=== PATIENT | male | born 1965 | race Caucasian/White ===

== ENCOUNTER 2017-08-01 08:30 | Emergency (ER) | payer BC, SELFPAY ==
[2017-08-01 08:36] VITALS: BMI 31.6
[2017-08-01 08:37] VITALS: BP 156/87; PULSE 78; RESP 16; TEMP 36.8; O2SAT 98; BMI 33.0
--- NOTE | 2017-08-01 08:44 | CT_ITS ---
CT abdomen pelvis wo con CLINICAL INDICATION: Left flank pain with hematuria with history of kidney stones ITS.REASON: FLANK PAIN,BACK PAIN ORDERING PHYSICIAN: Darwin Turner MD PATIENT AGE: 51 years COMPARISON: 03/29/2016 TECHNIQUE: Axial images obtained with sagittal and coronal reformats. PROCEDURE: Oral Contrast: None IV Contrast: None . FINDINGS: No acute finding the lung bases The liver, spleen, adrenal glands, pancreas and gallbladder have an unremarkable unenhanced CT appearance. There is a 4 mm stone at the left ureterovesical junction causing mild left-sided hydronephrosis and hydroureter with minimal stranding of the left perinephric and. Ureteral fat. There is mild fusiform dilatation of the infrarenal abdominal aorta at 2.8 cm. Unremarkable appendix. No evidence of intestinal obstruction, free air, or diverticulitis. No acute bony anomalies. IMPRESSION: 4 mm obstructing left ureterovesical junction stone with mild left hydroureteronephrosis
--- NOTE | 2017-08-01 08:44 | [facility].EDGENADL ---
ED Disposition Clinical Impression: Kidney stone on left side, Obstruction of left ureteropelvic junction (UPJ) due to stone Hematuria Qualifiers: Hematuria type: unspecified type Qualified Code(s): R31.9 - Hematuria, unspecified Disposition: Home, Self-Care Condition on Discharge: Good Instructions: DI for Kidney Stones, DI for Calluses and Corns Additional Instructions: Please drink plenty of fluids, take the medications prescribed as directed, follow-up with Dr. Marcus within 2 days, if pain not subsiding. Please follow up with Dr Boyer regarding your foot callus. Prescriptions: Etodolac [Etodolac 400mg Tab] 400 mg PO BID PRN #40 tab PRN Reason: pain Tadalafil [Cialis] 5 mg PO DIRECTED #20 tab Tamsulosin HCl [Flomax 0.4mg capsule] 0 mg PO DAILY #30 cap.er.24h Referrals: Irish Boyer DPM [Physician] - Gordon Marcus MD [Physician] - Forms: Work/School Release Time of Disposition: 10:12 - Critical Care Critical Care Time: No Attestation: On , the high probability of a clinically significant, sudden or life threatening deterioration of the following system(s) required my full and direct attention, intervention and personal management. The time I documented below is in addition to time spent performing reported procedures but includes the following listed in this critical care notation. Medical Decision Making - Medical Records Medical records reviewed: Yes: I reviewed the patient's medical records. Vital Signs: 08/01/17 08:37 08/01/17 10:16 Temperature 98.3 F 98.4 F Temperature Source Temporal Artery Scan Pulse Rate 89 Pulse Rate [Right Brachial] 78 Respiratory Rate 16 18 Blood Pressure 133/81 Blood Pressure [Right Arm] 156/87 Blood Pressure Mean [Right Arm] 110 Blood Pressure Source [Right Arm] Automatic Cuff 02 Sat by Pulse Oximetry 98 Oxygen Delivery Method Room Air - Lab Data Lab results reviewed: Yes: I reviewed the patient's lab results. Lab Results 08/01/17 08:50: WBC 10.9 H, RBC 4.72, Hgb 14.8, Hct 43.8, MCV 92.9, MCH 31.4 H, MCHC 33.8, RDW 12.4, Plt Count 213, MPV 7.3 L, Neut % (Auto) 73.9, Lymph % (Auto) 17.8, [place] % (Auto) 6.8, Eos % (Auto) 0.9, Baso % (Auto) 0.5, Neut # (Auto) 8.1 H, Lymph # (Auto) 1.9, [place] # (Auto) 0.8, Eos # (Auto) 0.1, Baso # (Auto) 0.1 08/01/17 08:50: Sodium 137, Potassium 3.7, Chloride 104, Carbon Dioxide 24, Anion Gap 12.7, BUN 12, Creatinine 1.20, Estimated Creat Clear 115, Estimated GFR 64, Est GFR ( Amer) 77, Glucose 134 H, Calcium 8.7, Total Bilirubin 0.5, AST 26, ALT 48, Alkaline Phosphatase 74, Total Protein 8.0, Albumin 4.3, Globulin 3.7 H, Albumin/Globulin Ratio 1.2 08/01/17 09:00: Urine Color Yellow, Urine Appearance Clear, Urine pH 5.5, Ur Specific [place] 1.025, Urine Protein Trace, Urine Glucose (UA) Negative, Urine Ketones Negative, Urine Blood Trace, Urine Nitrate Negative, Urine Bilirubin Negative, Urine Urobilinogen 0.2, Ur Leukocyte Esterase Negative, Urine RBC 5-10, Urine WBC Occasional, Ur Squamous Epith Cells 3-5, Urine Bacteria 2+, Urine Mucus 2+ Result diagrams: 08/01/17 08:50 08/01/17 08:50 Orders (Tests/Meds): ED MEDICATIONS Discontinued Medications Generic Name Dose Route Start Last Admin Trade Name Roqueq PRN Reason Stop Dose Admin Ketorolac Tromethamine 30 mg 08/01/17 08:44 08/01/17 08:48 Toradol 30mg/Ml Vial IV 08/01/17 08:45 30 mg ONCE ONE Administration Ondansetron HCl 4 mg 08/01/17 08:46 08/01/17 08:48 Zofran 4mg/2ml Vial IV 08/01/17 08:47 4 mg ONCE ONE Administration ORDERS Category Date Time Status Urine Culture Stat Micro 08/01/17 09:00 Received - CT Data CT Scan: Abdomen, Pelvis (Both contrast) Time Received: 08:[address] Reviewed: Yes: I have reviewed the patient's CT results Findings Narrative: See the radiologist's report, consistent with 4 mm calculus at left UVJ - [place] Inquiry Pt receiving controlled substance: No - Reevaluation(s) T
--- NOTE | 2017-08-01 08:51 | ED_ITS ---
ED Disposition Clinical Impression: Kidney stone on left side, Obstruction of left ureteropelvic junction (UPJ) due to stone Hematuria Qualifiers: Hematuria type: unspecified type Qualified Code(s): R31.9 - Hematuria, unspecified Disposition: Home, Self-Care Condition on Discharge: Good Instructions: DI for Kidney Stones, DI for Calluses and Corns Additional Instructions: Please drink plenty of fluids, take the medications prescribed as directed, follow-up with Dr. Marcus within 2 days, if pain not subsiding. Please follow up with Dr Boyer regarding your foot callus. Prescriptions: Etodolac [Etodolac 400mg Tab] 400 mg PO BID PRN #40 tab PRN Reason: pain Tadalafil [Cialis] 5 mg PO DIRECTED #20 tab Tamsulosin HCl [Flomax 0.4mg capsule] 0 mg PO DAILY #30 cap.er.24h Referrals: Irish Boyer DPM [Physician] - Gordon Marcus MD [Physician] - Forms: Work/School Release Time of Disposition: 10:12 - Critical Care Critical Care Time: No Attestation: On , the high probability of a clinically significant, sudden or life threatening deterioration of the following system(s) required my full and direct attention, intervention and personal management. The time I documented below is in addition to time spent performing reported procedures but includes the following listed in this critical care notation. Medical Decision Making - Medical Records Medical records reviewed: Yes: I reviewed the patient's medical records. Vital Signs: 08/01/17 08:37 08/01/17 10:16 Temperature 98.3 F 98.4 F Temperature Source Temporal Artery Scan Pulse Rate 89 Pulse Rate [Right Brachial] 78 Respiratory Rate 16 18 Blood Pressure 133/81 Blood Pressure [Right Arm] 156/87 Blood Pressure Mean [Right Arm] 110 Blood Pressure Source [Right Arm] Automatic Cuff 02 Sat by Pulse Oximetry 98 Oxygen Delivery Method Room Air - Lab Data Lab results reviewed: Yes: I reviewed the patient's lab results. Lab Results 08/01/17 08:50: WBC 10.9 H, RBC 4.72, Hgb 14.8, Hct 43.8, MCV 92.9, MCH 31.4 H, MCHC 33.8, RDW 12.4, Plt Count 213, MPV 7.3 L, Neut % (Auto) 73.9, Lymph % (Auto ) 17.8, [place] % (Auto) 6.8, Eos % (Auto) 0.9, Baso % (Auto) 0.5, Neut # (Auto) 8.1 H, Lymph # (Auto) 1.9, [place] # (Auto) 0.8, Eos # (Auto) 0.1, Baso # (Auto) 0.1 08/01/17 08:50: Sodium 137, Potassium 3.7, Chloride 104, Carbon Dioxide 24, Anion Gap 12.7, BUN 12, Creatinine 1.20, Estimated Creat Clear 115, Estimated GFR 64, Est GFR ( Amer) 77, Glucose 134 H, Calcium 8.7, Total Bilirubin 0.5, AST 26, ALT 48, Alkaline Phosphatase 74, Total Protein 8.0, Albumin 4.3, Globulin 3.7 H, Albumin/Globulin Ratio 1.2 08/01/17 09:00: Urine Color Yellow, Urine Appearance Clear, Urine pH 5.5, Ur Specific [place] 1.025, Urine Protein Trace, Urine Glucose (UA) Negative, Urine Ketones Negative, Urine Blood Trace, Urine Nitrate Negative, Urine Bilirubin Negative, Urine Urobilinogen 0.2, Ur Leukocyte Esterase Negative, Urine RBC 5-10 , Urine WBC Occasional, Ur Squamous Epith Cells 3-5, Urine Bacteria 2+, Urine Mucus 2+ Result diagrams: 08/01/17 08:50 08/01/17 08:50 Orders (Tests/Meds): ED MEDICATIONS Discontinued Medications Generic Name Dose Route Start Last Admin Trade Name Freq PRN Reason Stop Dose Admin Ketorolac Tromethamine 30 mg 08/01/17 08:44 08/01/17 08:48 Toradol 30mg/Ml Vial IV 08/01/17 08:45 30 mg ONCE ONE Admini
--- NOTE | 2017-08-01 08:52 | PC.NURSE ---
RAD NOTIFIED OF CT ORDER
[2017-08-01 09:04] LABS: Basophils # 0.1 K/mm3 (0-0.2); Basophils % 0.5 % (0.1-2.0); Eosinophils # 0.1 K/mm3 (0.0-0.4); Eosinophils % 0.9 % (0.1-12.0); Hematocrit 43.8 % (42.0-52.0); Hemoglobin 14.8 g/dL (14.1-18.0); Lymphocytes # 1.9 K/mm3 (0.7-4.5); Lymphocytes % 17.8 K/mm3 (10-50); Mean Corpuscular HGB Conc 33.8 g/dL (31.8-35.4); Mean Corpuscular Hemoglobin 31.4 pg (27.0-31.2); Mean Corpuscular Volume 92.9 fl (80-94); Mean Platelet Volume 7.3 fl (7.4-10.4); Monocytes # 0.8 K/mm3 (0.1-1.0); Monocytes % 6.8 % (1.7-9.3); Neutrophils # 8.1 K/mm3 (1.8-7.8); Neutrophils % 73.9 % (37.0-80.0); Platelet Count 213 K/mm3 (142-424); Red Blood Count 4.72 M/mm3 (4.60-6.20); Red Cell Distribution Width 12.4 % (11.5-17.5); White Blood Count 10.9 K/mm3 (4.8-10.8)
[2017-08-01 09:04] LABS: Microscopic, Urine URINE MICROSCOPIC (MICROSCOPIC)
[2017-08-01 09:13] LABS: Appearance,Urine Clear (Clear); Blood, Urine Trace (Negative); Color,Urine Yellow (Yellow); Glucose,Urine (UA) Negative (Negative); Ketones,Urine Negative (Negative); PH,Urine 5.5 (5.0-8.5); Protein,Urine Trace (Negative); Specific Gravity, Urine 1.025 (1.005-1.030)
[2017-08-01 09:14] LABS: Bilirubin,Urine Negative (Negative); Leukocyte Esterase,Urine Negative (Negative); Nitrate,Urine Negative (Negative); Urobilinogen,Urine 0.2 EU/dl (0.2)
[2017-08-01 09:18] LABS: Bacteria,Urine 2+ /lpf; WBC,Urine Occasional #/hpf (0-3)
[2017-08-01 09:19] LABS: Mucus,Urine 2+ /lpf
[2017-08-01 09:24] LABS: Alanine Aminotransferase 48 U/L (12-78); Albumin Level 4.3 gm/dL (3.4-5.0); Albumin/Globulin Ratio 1.2 (1.1-1.8); Alkaline Phosphatase 74 U/L (46-116); Anion Gap 12.7 mEq/L (5-15); Aspartate Amino Transferase 26 U/L (15-37); Bilirubin,Total 0.5 mg/dL (0.2-1.0); Blood Urea Nitrogen 12 mg/dL (7-18); Calcium 8.7 mg/dL (8.5-10.1); Carbon Dioxide 24 mmol/L (21.0-32.0); Chloride 104 mmol/L (98-107); Creatinine Clearance Estimated 115 mL/min (0-300); Estimated Glomerular Filt Rate 64 ml/min (>60); GFR (African American) 77 ML/MIN (>60); Globulin 3.7 gm/dl (1.3-3.2); Glucose 134 mg/dL (74-106); Potassium 3.7 mmoL/L (3.5-5.1); Sodium 137 mmol/L (136-145)
[2017-08-01 10:16] VITALS: BP 133/81; PULSE 89; RESP 18; TEMP 36.9; O2SAT 97
--- NOTE | 2020-10-07 06:35 | ECG_ITS ---
APPROVED REPORT Exam: Resting ECG HR:85 bpm ECG Measurements Heart Rate 85 AXES ID [id number] P 68 QRSd 118 QRS -6 QT 382 T 115 QTc 454 Conclusion Normal sinus rhythm Left ventricular hypertrophy with QRS widening and repolarization abnormality Abnormal ECG Electronically signed by : Clive Villafana, 10/07/2020 17:38:56
== END 2017-08-01 10:20 | disposition home or self-care (01) ==
PROVIDERS: Emergency Provider Emergency Medicine
DX: N20.2 Calculus of kidney with calculus of ureter (principal); Z87.442 Personal history of urinary calculi
CPT/HCPCS: 74176; 80053; 81001; 85025; 87086; 96365; 96375; 99283; J2405